=== PATIENT | female | born 1995 | race Caucasian/White ===

== ENCOUNTER 2024-04-22 00:20 | Emergency (ER) | payer OTHER ==
[~2024-04-22] VITALS: Ht 170.2 cm; Wt 74.0 kg
[2024-04-22 01:06] VITALS: O2SAT 99
[2024-04-22] MEDS ORDERED: LORA10TA7 MT (01:17)
[2024-04-22] MEDS ORDERED: CALA177S9 TP (01:17)
[2024-04-22 01:31] VITALS: BP 110/84; PULSE 62; RESP 16; TEMP 98
== END 2024-04-22 01:35 | disposition home or self-care (01) ==
LOC: EDBD 00:20 → ER 00:20
DX: S80.862A Insect bite (nonvenomous), left lower leg, initial encounter (principal); S80.861A Insect bite (nonvenomous), right lower leg, initial encounter; W57.XXXA Bitten or stung by nonvenomous insect and other nonvenomous arthropods, initial encounter; Y93.89 Activity, other specified; Y92.89 Other specified places as the place of occurrence of the external cause; Y99.8 Other external cause status
CPT/HCPCS: 99282